=== PATIENT | male | born 1970 | race Caucasian/White ===

== ENCOUNTER → 2023-01-09 | Outpatient (REF) | payer MEDICAID ==
[2023-01-09 13:11] LABS: BASO % 0.2 % (0.0-1.0); EOS # 0.2 10^3/uL (0.0-0.5); EOS % 4.9 % (0.0-3.0); HEMATOCRIT 41.3 % (42.0-52.0); HEMOGLOBIN 13.1 g/dl (13.5-17.5); MEAN CORPUSCULAR HEMOGLOBIN 28.6 pg (27.0-33.0); MEAN CORPUSCULAR HGB CONC 31.7 g/dl (32.0-36.5); MEAN CORPUSCULAR VOLUME 90.2 fl (80.0-96.0); MONO # 0.3 10^3/uL (0.0-0.8); MONO % 6.2 % (2.0-8.0); NEUTROPHILS % 66.3 % (36.0-66.0); PLATELET COUNT, AUTOMATED 219 10^3/uL (150-450); RED BLOOD COUNT 4.58 10^6/uL (4.30-6.10); WHITE BLOOD COUNT 4.5 10^3/uL (4.0-10.0)
[2023-01-09 13:24] LABS: ALBUMIN 3.9 G/DL (3.2-5.2); ALKALINE PHOSPHATASE 83 U/L (46-116); ALT/SGPT 31 U/L (7.0-40); AST/SGOT 12 U/L (<34); BILIRUBIN,TOTAL 0.5 MG/DL (0.3-1.2); BLOOD UREA NITROGEN 21 MG/DL (9-23); CALCIUM LEVEL 9.3 MG/DL (8.5-10.1); CARBON DIOXIDE LEVEL 31 MMOL/L (20-31); CHLORIDE LEVEL 105 MMOL/L (98-107); GLOMERULAR FILTRATION RATE > 60.0 (>56); GLUCOSE, FASTING 84 MG/DL (60-100); POTASSIUM SERUM 4.4 MMOL/L (3.5-5.1); SODIUM LEVEL 145 MMOL/L (136-145); TOTAL PROTEIN 7.5 G/DL (5.7-8.2)
== END ==
LOC: M LABDRWAD 12:15
PROVIDERS: ATTEND Registered Nurse
DX: I10 Essential (primary) hypertension (principal)

== ENCOUNTER → 2023-05-31 | Outpatient (REF) | payer MEDICAID ==
[2023-05-31 14:18] LABS: FOLLICLE STIMULATING HORMONE 4.1 mIU/ML (1.4-18.1); THYROID STIMULATING HORMONE 1.268 uIU/ML (0.55-4.78)
[2023-05-31 14:19] LABS: FREE T4 0.86 NG/DL (0.89-1.76)
== END ==
LOC: M LABDRWAD 12:52
PROVIDERS: ATTEND Physical Medicine & Rehabilitation
DX: S06.9X6S Unspecified intracranial injury with loss of consciousness greater than 24 hours without return to pre-existing conscious level with patient surviving, sequela (principal); Y93.9 Activity, unspecified; Y92.9 Unspecified place or not applicable

== ENCOUNTER → 2023-09-16 | Outpatient (REF) | payer MEDICAID | LOC: M LAB REF 17:04 | PROVIDERS: ATTEND Registered Nurse | DX: R30.0 Dysuria (principal) ==

== ENCOUNTER → 2024-07-21 | Outpatient (REF) | payer MEDICAID | LOC: M LAB REF 17:22 | PROVIDERS: ATTEND Nurse Practitioner Family | DX: R19.7 Diarrhea, unspecified (principal) ==

== ENCOUNTER → 2024-10-27 | Outpatient (CLI) | payer MEDICARE, MEDICAID | LOC: M RAD 12:48 | PROVIDERS: ATTEND Registered Nurse | DX: R05.9 Cough, unspecified (principal) ==

== ENCOUNTER → 2024-12-17 | Outpatient (CLI) | payer MEDICARE, MEDICAID ==
[2024-12-17 17:50] LABS: BASO # 0.0 10^3/uL (0.0-0.2); BASO % 0.2 % (0.0-1.0); EOS # 0.0 10^3/uL (0.0-0.5); EOS % 0.7 % (0.0-3.0); LYMPH # 0.6 10^3/uL (1.5-5.0); LYMPH % 13.8 % (24.0-44.0); MONO # 0.4 10^3/uL (0.0-0.8); MONO % 10.5 % (2.0-8.0); NEUTROPHILS # 3.1 10^3/uL (1.5-8.5); NEUTROPHILS % 74.6 % (36.0-66.0); PLATELET COUNT, AUTOMATED 239 10^3/uL (150-450)
[2024-12-17 17:56] LABS: ALT/SGPT 277 U/L (7.0-40); AST/SGOT 38 U/L (<34); CALCIUM LEVEL 9.0 MG/DL (8.5-10.1); CARBON DIOXIDE LEVEL 28 MMOL/L (20-31); CHLORIDE LEVEL 106 MMOL/L (98-107); CREATININE FOR GFR 0.85 MG/DL (0.70-1.30); GLOMERULAR FILTRATION RATE > 90.0 (>56); POTASSIUM SERUM 4.0 MMOL/L (3.5-5.1); SODIUM LEVEL 145 MMOL/L (136-145)
== END ==
LOC: M PLALAB 14:36
PROVIDERS: ATTEND Registered Nurse
DX: R10.84 Generalized abdominal pain (principal); N20.0 Calculus of kidney

== ENCOUNTER → 2024-12-25 | Outpatient (CLI) | payer MEDICARE, MEDICAID ==
[2024-12-25 15:36] LABS: ALT/SGPT 61 U/L (7.0-40); AST/SGOT 22 U/L (<34); CALCIUM LEVEL 9.3 MG/DL (8.5-10.1); CARBON DIOXIDE LEVEL 30 MMOL/L (20-31); CHLORIDE LEVEL 106 MMOL/L (98-107); CREATININE FOR GFR 0.82 MG/DL (0.70-1.30); GLOMERULAR FILTRATION RATE > 90.0 (>56); POTASSIUM SERUM 4.1 MMOL/L (3.5-5.1); SODIUM LEVEL 146 MMOL/L (136-145)
[2024-12-25 15:41] LABS: BASO # 0.0 10^3/uL (0.0-0.2); BASO % 0.6 % (0.0-1.0); EOS # 0.0 10^3/uL (0.0-0.5); EOS % 0.6 % (0.0-3.0); LYMPH # 1.1 10^3/uL (1.5-5.0); LYMPH % 22.8 % (24.0-44.0); MONO # 0.2 10^3/uL (0.0-0.8); MONO % 4.3 % (2.0-8.0); NEUTROPHILS # 3.3 10^3/uL (1.5-8.5); NEUTROPHILS % 71.5 % (36.0-66.0); PLATELET COUNT, AUTOMATED 369 10^3/uL (150-450)
== END ==
LOC: M PLALAB 11:41
PROVIDERS: ATTEND Registered Nurse
DX: R94.5 Abnormal results of liver function studies (principal)

== ENCOUNTER → 2025-01-25 | Outpatient (CLI) | payer MEDICARE, MEDICAID ==
[2025-01-25 15:40] LABS: BASO # 0.0 10^3/uL (0.0-0.2); BASO % 0.5 % (0.0-1.0); EOS # 0.0 10^3/uL (0.0-0.5); EOS % 0.7 % (0.0-3.0); LYMPH # 0.7 10^3/uL (1.5-5.0); LYMPH % 18.3 % (24.0-44.0); MONO # 0.3 10^3/uL (0.0-0.8); MONO % 6.9 % (2.0-8.0); NEUTROPHILS # 3.0 10^3/uL (1.5-8.5); NEUTROPHILS % 73.4 % (36.0-66.0); PLATELET COUNT, AUTOMATED 244 10^3/uL (150-450)
[2025-01-25 15:43] LABS: ALT/SGPT 13 U/L (7.0-40); AST/SGOT 15 U/L (<34); CALCIUM LEVEL 8.8 MG/DL (8.5-10.1); CARBON DIOXIDE LEVEL 31 MMOL/L (20-31); CHLORIDE LEVEL 106 MMOL/L (98-107); CREATININE FOR GFR 0.78 MG/DL (0.70-1.30); GLOMERULAR FILTRATION RATE > 90.0 (>56); POTASSIUM SERUM 4.7 MMOL/L (3.5-5.1); SODIUM LEVEL 146 MMOL/L (136-145)
== END ==
LOC: M PLALAB 11:36
PROVIDERS: ATTEND Registered Nurse
DX: R94.5 Abnormal results of liver function studies (principal)